=== PATIENT | female | born 1985 | race American Indian/Alaskan Native ===

== ENCOUNTER 2017-03-23 15:31 | Emergency (ER) | payer OTHER ==
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
[2017-03-23 16:30] VITALS: BP 125/66
[2017-03-23 17:29] LABS: Bilirubin,Urine NEG (Negative); Blood,Urine NEG (Negative); Ketones,Urine 20 mg/dL (Negative); Leukocyte Esterase,Urine TR (Negative); Mucus,Urine FEW /HPF; Nitrite,Urine NEG (Negative); Protein,Urine <15 mg/dL mg/dL (Negative); Urobilinogen,Urine < 2.0 mg/dL (<2.0); WBC,Urine < 1.0 /HPF (0.0-6.0)
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
--- NOTE | 2017-03-24 14:50 | ED Elopement Review ---
ED Pt Elopement review - Results review Lab results: Laboratory Tests 03/23/17 17:00 Urine Color Yellow Urine Turbidity Clear Urine pH 6.0 Ur Specific [place] 1.008 Urine Protein <15 mg/dl Urine Glucose (UA) Neg Urine Ketones 20 Urine Blood Neg Urine Nitrite Neg Ur Reducing Substances Not Reportable Urine Bilirubin Neg Urine Ictotest Not Reportable Urine Urobilinogen < 2.0 Ur Leukocyte Esterase Tr Urine WBC (Auto) < 1.0 Urine RBC (Auto) 1.0 U Epithel Cells (Auto) 1.0 Urine Mucus Few Urine HCG, Qual Positive A - Call Back decision Pt Call Back Decision: No action required
== END 2017-03-23 20:05 | disposition left against medical advice (07) ==
LOC: ED 15:31
DX: O26.891 Other specified pregnancy related conditions, first trimester (principal); M54.2 Cervicalgia; R10.9 Unspecified abdominal pain; V49.49XA Driver injured in collision with other motor vehicles in traffic accident, initial encounter; W22.11XA Striking against or struck by driver side automobile airbag, initial encounter; Y93.89 Activity, other specified; Y99.8 Other external cause status; Y92.488 Other paved roadways as the place of occurrence of the external cause; Z3A.14 14 weeks gestation of pregnancy; Z53.21 Procedure and treatment not carried out due to patient leaving prior to being seen by health care provider
CPT/HCPCS: 76801; 81001; 81025